=== PATIENT | male | born 1960 | race Two or more races ===

== ENCOUNTER 2024-02-27 15:12 | Emergency (ER) | payer MEDICAID, OTHER ==
[~2024-02-27] VITALS: Ht 162.6 cm; Wt 76.9 kg
--- NOTE | 2024-02-27 16:07 | ED.PDOC ---
Musculoskeletal HPI Comments 63 year old male presents to the ED with chief complaint of left elbow and wrist pain. Patient's [id number] reports that the patient had been noted to have a swollen, red, and painful left wrist and elbow on Monday. Sister relays that the patient heavily drinks and he is unable to recall when or how he injured it, but she states patient must have fallen around Monday. Patient denies any numbness, weakness, head injury, or dizziness. Chief Complaint: Fall Injury Time Seen by MD: 16:04 Primary Care Provider: LUIS ARMANDO Naqvi Notes: Nurses Notes, Medications, Allergies Allergies: Coded Allergies: NO KNOWN ALLERGIES (Unverified , 02/27/24) Home Meds Active Scripts Hydrocodone-Acetaminophen (Hydrocodone Bitartrate/AC 5-325 mg) 1 Tab Tab, 1 TAB PO Q8HP PRN for 7 Days, #21 TAB Prov:TONYA TAVERA MD 02/27/24 Information Source: Patient, Relative ([id number]) Mode of Arrival: Ambulatory Location: Left Extremity Location: Elbow, Wrist Timing: Days Prehospital treatment: None Severity: Moderate Able to Move Extremity: Yes Bear Weight: Fully Pain: Moderate Mechanism: Spontaneous Circumstances: Fall Onset of Symptoms: After Trauma Symptoms: Swelling, Pain, Erythema DVT Risk Factors: NONE Last Tetanus: Unknown Associated signs and symptoms: Wrist pain, Elbow pain Past Medical History PAST MEDICAL HISTORY: DM, High Lipids, HTN Surgical History (Other): Rt shoulder surgery Family History Family History: Reviewed,noncontributory to illness, Family hx of heart scooter Social History Smoker: Non-Smoker Alcohol: Heavy Drugs: Denies Drug Use Lives In: Home Constitutional: denies: chills, diaphoresis, fatigue, fever, malaise, sweats, weakness, others EENTM: denies: blurred vision, double vision, ear bleeding, ear discharge, ear drainage, ear pain, ear ringing, eye pain, eye redness, hearing loss, mouth pain, mouth swelling, nasal discharge, nose bleeding, nose congestion, nose pain, photophobia, tearing, throat pain, throat swelling, voice changes, others Respiratory: denies: cough, hemoptysis, orthopnea, SOB at rest, shortness of breath, SOB with excertion, stridor, wheezing, others Cardiovascular: denies: chest pain, dizzy spells, diaphoresis, Dyspnea on exertion, edema, irregular heart beat, left arm pain, lightheadedness, palpitations, PND, syncope, others Gastrointestinal: denies: abdomen distended, abdominal pain, blood streaked bowels, constipated, diarrhea, dysphagia, difficulty swallowing, hematemesis, melena, nausea, poor appetite, poor fluid intake, rectal bleeding, rectal pain, vomiting, others Genitourinary: denies: burning, dysuria, flank pain, frequency, hematuria, incontinence, penile discharge, penile sore, pain, testicle pain, testicle swelling, urgency, others Neurological: denies: dizziness, fainting, headache, left sided numbness, left sided weakness, numbness, paresthesia, pre-existing deficit, right sided numbness, right sided weakness, seizure, speech problems, tingling, tremors, weakness, others Musculoskeletal: reports: others (Left wrist and elbow pain and swelling); denies: back pain, gout, joint pain, joint swelling, muscle pain, muscle stiffness, neck pain Integumetry: denies: bruises, change in color, change in hair/nails, dryness, laceration, lesions, lumps, rash, wounds, others Allergic/Immunocompromised: denies: Difficulty Healing, Frequent Infections, Hives, Itching, others Hematologic/Lymphatic: denies: anemia, blood clots, easy bleeding, easy bruising, swollen glands, others Endocrine: denies: excessive hunger, excessive sweating, excessive thirst, excessive urination, flushing, intolerance to cold, intolerance to heat, unexplained weight gain, unexplained weight loss, others Psychiatric: denies: anxiety, bipolar disorder, depression, hopeless, panic disorder, schizophrenia, sleepless, suicidal, others All Other Systems: Reviewed and Negative Physical Exam General Appearance: Moderate Distress HEENT: Normal ENT Inspection, Pharynx Normal, TMs Normal Neck: Full Range of Motion, Non-Tender, Normal, Normal Inspection Respiratory: Chest Non-Tender, Lungs Clear, No Accessory Muscle Use, No Respiratory Distress, Normal Breath Sounds Cardiovascular: No Edema, No JVD, No Murmur, No Gallop, Normal Peripheral Pulses, Regular Rate/Rhythm Breast Exam: Deferred Gastrointestinal: No Organomegaly, Non Tender, No Pulsatile Mass, Normal Bowel Sounds, Soft Genitalia: Deferred Pelvic: Deferred Rectal: Deferred Extremities: No calf tenderness, Normal capillary refill, No pedal edema Musculoskeletal : Location: Left Extremity Location: Elbow Apperance: Swelling, Limited ROM, Tenderness: Moderate Neurologic: Alert, pearl glue drier II-XII nml as Tested, No Motor Deficits, Normal Affect, Normal Mood, No Sensory Deficits Cerebellar Function: Normal Reflexes: Normal Skin: Dry, Normal Color, Warm Lymphatic: No Adenopathy Was a procedure done? Was a procedure done?: No Differential Diagnosis EXT Differential Diagnosis: Fracture X-Ray, Labs, Meds, VS Vital Signs Date Time Temp Pulse Resp B/P (MAP) Pulse Ox O2 Delivery O2 Flow Rate FiO2 02/27/24 15:23 98.1 120 20 116/80 (92) 95 Lab Test 02/27/24 16:05 Range/Units White Blood Count 3.1 L 4.4-10.8 10^3/uL Red Blood Count 4.61 4.5-5.90 10^6/uL Hemoglobin 13.4 L 13.5-17.5 g/dL Hematocrit 41.6 41.0-53.0 % Mean Corpuscular Volume 90.3 80.0-100.0 fL Mean Corpuscular Hemoglobin 29.2 28.0-32.0 pg Mean Corpuscular Hemoglobin Concent 32.3 32.0-36.0 g/dL Red Cell Distribution Width 14.1 11.8-14.3 % Platelet Count 207 140-450 10^3/uL Mean Platelet Volume 8.8 6.9-10.8 fL Neutrophils (%) (Auto) 37.0-80.0 % Lymphocytes (%) (Auto) 10.0-50.0 % Monocytes (%) (Auto) 0.0-12.0 % Basophils (%) (Auto) 0.0-2.0 % Neutrophils # (Auto) 1.6-8.6 10 ^3/uL Lymphocytes # (Auto) 0.4-5.4 10 ^3/uL Monocytes # (Auto) 0-1.3 10 ^3/uL Differential Total Cells Counted 100.0 100 Neutrophils % (Manual) 59 37.0-80.0 Band Neutrophils % (Manual) 25 Lymphocytes % (Manual) 9 L 10.0-50.0 Monocytes % (Manual) 5 0-12 Eosinophils % (Manual) 0 0-7 Basophils % (Manual) 0 0.0-2.0 Metamyelocytes % (manual) 2 Myelocytes % (Manual) 0 Promyelocytes % (Manual) 0 Blast Cells % (Manual) 0 Reactive Lymphocytes 0 Platelet Estimate Adequate Anisocytosis (manual) Slight Sodium Level 128 L 136-145 mmol/L Potassium Level 4.9 3.5-5.1 mmol/L Chloride Level 99 98-107 mmol/L Carbon Dioxide Level 12 L 20-31 mmol/L Anion Gap 17 H 5-15 Blood Urea Nitrogen 22 9-23 mg/dL Creatinine 1.43 H 0.700-1.30 mg/dL Glomerular Filtration Rate Calc 55 >90 mL/min BUN/Creatinine Ratio 15.4 10.0-20.0 Serum Glucose 689 *H 74-106 mg/dL Calcium Level 10.3 8.7-10.4 mg/dL The patient's CBC is within normal limits The chemistry panel shows hyponatremia with a CO2 level 12 The patient was hyperglycemic at 689 We did start an IV Hep-Lock and the patient was given normal saline as a bolus The patient was also given insulin The patient will follow up with Dr. Hernandez tomorrow We did consult with Orthopedic surgery and the patient be splinted and discharged home. They will schedule the patient for surgery as an outpatient Images Reviewed?: Images reviewed and evaluated by me Time of 1ST Reevaluation: 19:12 Reevaluation 1ST: Unchanged Patient Education/Counseling: Diagnosis, Treatment, Prognosis, Need For Follow Up Family Education/Counseling: Diagnosis, Treatment, Prognosis, Need For Follow Up Departure 1 Departure Time of Disposition: 19:12 Impression: Primary Impression: Left elbow fracture Qualified Codes: S42.402A - Unspecified fracture of lower end of left humerus, initial encounter for closed fracture Additional Impression: Hyperglycemia Disposition: 01 HOME / SELF CARE / HOMELESS Condition: Fair e-Prescriptions Hydrocodone-Acetaminophen (Hydrocodone Bitartrate/AC 5-325 mg) 1 Tab Tab 1 TAB PO Q8HP PRN for 7 Days, #21 TAB Prov: TONYA TAVERA MD 02/27/24 Discharged With: Self, Relative Critical Care Note Critical Care Time?: No Stability Stability form required: No Heart Score Heart Score: Heart Score Response (Comments) Value History N/A 0 EKG N/A 0 Age N/A 0 Risk Factors N/A 0 Troponin N/A 0 Total 0 I personally scribed for TONYA TAVERA MD ([email or web address]) on 02/27/24 at 16:07. Electronically submitted by Skip Junior ([email or web address]). TONYA TAVERA MD Feb 27, 2024 16:07
--- NOTE | 2024-02-27 16:34 | DVH ---
EXAM: XY L ELBOW 3 VIEW XRAY CLINICAL HISTORY: fall COMPARISON: None TECHNIQUE: XY L ELBOW 3 VIEW XRAY Findings/Impression: 3 views of the left elbow. Moderately displaced fracture of the bilateral humeral condyles with moderate soft tissue edema and j oint effusion. There is no evidence of dislocation, blastic, or lytic lesions. No radiopaque foreign bodies.
--- NOTE | 2024-02-27 16:35 | DVH ---
CLINICAL INDICATION: fall TECHNIQUE: 3 radiographic views of the left wrist were obtained. Comparison: None FINDINGS/IMPRESSION: There is no evidence of acute fracture or dislocation. The visualized joint space is well maintained. The alignment is anatomical. There is no radiopaque foreign body. Vascular calcification is noted.
[2024-02-27 16:43] LABS: Hematocrit 41.6 % (41.0-53.0); Hemoglobin 13.4 g/dL (13.5-17.5); Mean Corpuscular Hemoglobin 29.2 pg (28.0-32.0); Mean Corpuscular Hgb Conc. 32.3 g/dL (32.0-36.0); Mean Corpuscular Volume 90.3 fL (80.0-100.0); Platelet Count (auto) 207 10^3/uL (140-450); Red Blood Cells 4.61 10^6/uL (4.5-5.90); Red Cell Distribution Width 14.1 % (11.8-14.3); White Blood Cell 3.1 10^3/uL (4.4-10.8)
[2024-02-27 16:44] LABS: Basophils % (manual) 0 (0.0-2.0); Blast Cells 0; Eosinophils % (manual) 0 (0-7); Myelocytes % 0; Promyelocytes % 0; Reactive Lymphocytes 0
[2024-02-27 16:48] LABS: Anion Gap 17 (5-15); Chloride 99 mmol/L (98-107); Potassium 4.9 mmol/L (3.5-5.1)
[2024-02-27 16:49] LABS: Calcium 10.3 mg/dL (8.7-10.4)
[2024-02-27 16:54] LABS: BUN/Creatinine Ratio 15.4 (10.0-20.0); Blood Urea Nitrogen 22 mg/dL (9-23)
[2024-02-27 17:13] LABS: Carbon Dioxide 12 mmol/L (20-31); Sodium 128 mmol/L (136-145)
[2024-02-27] MEDS ORDERED: HYDR-4902 PO (17:16)
[2024-02-27 17:17] LABS: Glucose 689 mg/dL (74-106)
[2024-02-27 18:02] LABS: Band Neutrophils % (manual) 25; Lymphocytes % (manual) 9 (10.0-50.0); Metamyelocytes % 2; Monocytes % (manual) 5 (0-12); Platelet Estimate Adequate
[2024-02-27 18:03] LABS: Anisocytosis Slight
[2024-02-27 19:24] VITALS: PULSE 110; RESP 18; O2SAT 98
[2024-02-27] MEDS: MORPHINE SULFATE 4 MG/ML SYR/VIAL IV ONE (20:09)
[2024-02-27] MEDS: ONDANSETRON HCL 4 MG/2 ML VIAL IV ONE (20:09)
[2024-02-27] MEDS: InsuLIN REG 1unit/0.01ml Soln (100units/ml) IV ONE (20:16)
[2024-02-27] MEDS: SODIUM CHLORIDE 0.9% 500 ML IV ONE (20:18)
[2024-02-27 21:28] VITALS: PULSE 113; RESP 34; O2SAT 95
[2024-02-27] MEDS ORDERED: ONDANSETRON HCL 4 MG/2 ML VIAL IV PRN (21:45)
[2024-02-27] MEDS ORDERED: HYDROcodone-ACET 5/325MG TAB PO PRN (21:45)
[2024-02-27] MEDS ORDERED: TEMAZEPAM 15 MG CAP PO PRN (21:45)
[2024-02-27] MEDS ORDERED: DEXTROSE (50%) 50ML SYRG IV PRN (21:45)
[2024-02-27] MEDS ORDERED: MORPHINE SULFATE INJ 2 MG/ml SYRG IV PRN ×2 (21:45)
[2024-02-27] MEDS ORDERED: NITROGLYCERIN 0.4 MG SL TAB SL PRN (21:45)
[2024-02-27] MEDS ORDERED: ACETAMINOPHEN 325 MG TAB PO PRN (21:45)
[2024-02-27 22:50] LABS: Chloride 100 mmol/L (98-107); Potassium 4.3 mmol/L (3.5-5.1)
[2024-02-27 22:51] LABS: Anion Gap 19 (5-15)
[2024-02-27 22:52] LABS: Calcium 9.1 mg/dL (8.7-10.4)
[2024-02-27] MEDS: INSULIN DRIP 100 UNIT/100ML 100 ML IV SCH (22:55)
[2024-02-27 22:56] LABS: BUN/Creatinine Ratio 17.8 (10.0-20.0)
[2024-02-27] MEDS: INSULIN LANTUS (GLARGINE) 1 /0.01ml (100units/ml) SC ONE (22:56)
[2024-02-27] MEDS: ACCU-CHEK COMFORT CURVE STRIP VI SCH (22:56)
[2024-02-27 22:57] LABS: Blood Urea Nitrogen 32 mg/dL (9-23); Carbon Dioxide 11 mmol/L (20-31); Sodium 130 mmol/L (136-145)
[2024-02-27 23:05] LABS: Glucose 642 mg/dL (74-106)
[2024-02-27] MEDS: SODIUM CHLORIDE 0.9% 3,500 ML IV ONE (23:36)
[2024-02-27] MEDS: SODIUM BICARB 8.4% 50Meq/50ml SYR Vial IV ONE (23:45)
[2024-02-28] MEDS: ACCU-CHEK COMFORT CURVE STRIP VI SCH
[2024-02-28] MEDS ORDERED: DEXTROSE (50%) 50ML SYRG IV PRN
[2024-02-28 00:26] LABS: Base Excess -9.2 mmol/L (-2.0-3.0)
[2024-02-28] MEDS: SODIUM CHLORIDE 0.9% 1,000 ML IV SCH ×3 (01:16→06:24)
[2024-02-28] MEDS ORDERED: SODIUM CHLORIDE 0.9% 1,000 ML IV SCH ×2 (01:45→03:45)
[2024-02-28] MEDS: IOHEXOL 350 MG/ML 100ML IJ ONE ×2 (02:20→04:25)
[2024-02-28] MEDS ORDERED: METOPROLOL TARTRATE 1MG/1ML-5ML VIAL IV SCH (02:45)
[2024-02-28] MEDS: AMIODARONE BOLUS KIT 100 ML IV ONE (02:45)
[2024-02-28 03:10] LABS: Anion Gap 20 (5-15); Chloride 105 mmol/L (98-107); Potassium 3.6 mmol/L (3.5-5.1)
[2024-02-28 03:14] LABS: Base Excess -14.5 mmol/L (-2.0-3.0)
[2024-02-28 03:16] LABS: BUN/Creatinine Ratio 19.4 (10.0-20.0)
[2024-02-28 03:19] LABS: Blood Urea Nitrogen 27 mg/dL (9-23); Calcium 8.4 mg/dL (8.7-10.4); Carbon Dioxide 10 mmol/L (20-31); Glucose 440 mg/dL (74-106); Sodium 135 mmol/L (136-145)
[2024-02-28] MEDS: METOPROLOL TARTRATE 1MG/1ML-5ML VIAL IV ONE (03:29)
[2024-02-28] MEDS: HYDROcodone-ACET 10/325MG TAB PO ONE (03:43)
[2024-02-28] MEDS: AMIODARONE 450mg/250ml AE 250 ML IV SCH (03:44)
[2024-02-28] MEDS: INSULIN DRIP 100 UNIT/100ML 100 ML IV SCH ×2 (03:51)
[2024-02-28] MEDS: SODIUM BICARB 8.4% 50Meq/50ml SYR Vial IV ONE (03:52)
--- NOTE | 2024-02-28 03:55 | DVH ---
Examination: UECIR CLINICAL INDICATION: nrcrosis, rif and rmf COMPARISON: None. CONTRAST USED: Intravenous. TECHNIQUE: A contrast CT study of the left upper extremity is performed. Multiplanar reconstruction s were obtained. CT scan WAS done according to ALARA (As Low As Reasonably Achievable). FINDINGS: Comminuted fracture of the metaphysis of left humerus is seen with multiple adjacent bone fragments. Rest of the humerus, visualized parts of radius and ulna appear normal. The elbow joint appears normal. No evidence of dislocation. No evidence of erosion/destruction. There is no joint effusion. There is no evidence of subluxation or dislocation. The visualized soft tissues appear unremarkable. No obvious collection is seen. IMPRESSION: Comminuted fracture of the metaphysis of left humerus is seen with multiple adjacent bon e fragments. Electronically Signed 02/28/2024 03:55 Marcelle Quiles
--- NOTE | 2024-02-28 03:55 | DVH ---
Examination: HWOCT CLINICAL INDICATION: trauma DIREAS;Reason for Exam: Portable;Portable;Modes of Transportation DITRAN S;How is patient transported?. COMPARISON: None. CONTRAST USED: None. TECHNIQUE: The examination was performed obtaining 5 mm slices without contrast. Multiplanar reconst ructions were obtained. CT scan done according to ALARA (As Low As Reasonably Achievable). FINDINGS: SUPRATENTORIAL BRAIN: Cerebral Hemispheres: There is no midline shift or mass effect, intra or extra-axial fluid collectio ns or hemorrhage. Periventricular White Matter/Basal Ganglia: No abnormal areas of altered attenuation within the [place] ventricular white matter or basal ganglia. POSTERIOR FOSSA: The brainstem is normal and the visualized cerebellar hemispheres are unremarkable. VENTRICULAR SYSTEM: The ventricular system is normal in size. There is no evidence of hydrocephalus or transependymal flow of cerebrospinal fluid. SKULL BASE AND PARASELLAR REGION: The skull base is normal with no parasellar masses or abnormalitie s identified. CALVARIUM AND SCALP REGION: No abnormality is seen. PARANASAL SINUSES: Severe right maxillary, mild bilateral ethmoid and left maxillary sinusitis. IMPRESSION: 1. No intracranial abnormality detected. 2. No acute infarct or space occupying lesion is seen. 3. No intracranial hemorrhage or calvarial fracture. 4. Suggest MRI brain correlation if clinically deemed necessary. Electronically Signed 02/28/2024 03:55 Marcelle Quiles
[2024-02-28] MEDS: SODIUM BICARB 50mEq/50ml Vial 100 ML in SOD CHL 0.45% 1,000 ML IV ONE (03:59)
--- NOTE | 2024-02-28 05:23 | DVH ---
INDICATION: INFECTION// NECROSIS COMPARISON: CT LT UPPER EXTREMITY W CONTRAS on DOS: 02/28/24 TECHNIQUE: CT of the right was performed with contrast. Volume transverse images were obtained and reconstructed in multiple planes using bone and soft tissue algorithms. CONTRAST: None Radiation Dose Information: CTDI volume is 7.75 mGy. Dose-length product is 445.11 mGy*cm FINDINGS: The alignment is normal. There is elbow joint space narrowing and osteophyte formation. There is no fracture, dislocation, or periosteal reaction. No cortical destruction. Soft tissue edema. Diffuse vascular calcifications. No fluid collection. IMPRESSION: 1. No acute fracture or cortical destruction. 2. Soft tissue swelling in the forearm which may reflect cellulitis. No fluid collection. 3. Elbow osteoarthritis. All CT scans at this medical facility are performed using dose modulation techniques as appropriate t o a performed exam including the following: Automated exposure control was utilized; adjustment of th e MA and/or KV according to patient size; and use of iterative reconstruction technique.
[2024-02-28] MEDS: ALBUMIN 5% 250 ML IV ONE (05:45)
[2024-02-28 07:35] VITALS: BP 88/58; PULSE 133; RESP 49; TEMP 96.8; O2SAT 88
[2024-02-28] MEDS ORDERED: AMIODARONE 450mg/250ml AE 250 ML IV SCH (09:00)
[2024-02-28] MEDS ORDERED: INSULIN LANTUS (GLARGINE) 1 /0.01ml (100units/ml) SC SCH (10:00)
--- NOTE | 2024-02-28 10:24 | ECG ---
[facility] Test Date: 2024-02-28 Test Time: 00:39:05 Pat Name: LUIS BLACKWOOD Department: ED Room: [address] [place] [address] Gender: M Motion Picture Camera Operator: JULIÁN : 1960 Requested By: THA GARAY Order Number: [id number] Reading MD: Johnny Parker Measurements Intervals [place] Rate: 153 P: 0 NE: 0 QRS: 69 QRSD: 85 T: 98 QT: 274 QTc: 438 Interpretive Statements Atrial fibrillation with rapid V-rate Low voltage, precordial leads Abnormal R-wave progression, early transition Repolarization abnormality, prob rate related Electronically Signed On 03-01-2024 10:24:59 PST by Johnny Parker Please click the below link to view image of tracing.
== END 2024-02-28 07:45 | disposition short-term general hospital (02) ==
LOC: ER 15:12 → TELE 21:38 → UNDOADMIN 21:38 → UNDODISIN 02-28 07:45
DX: S42.402A Unspecified fracture of lower end of left humerus, initial encounter for closed fracture (principal); E11.10 Type 2 diabetes mellitus with ketoacidosis without coma; E11.65 Type 2 diabetes mellitus with hyperglycemia; I10 Essential (primary) hypertension; W18.09XA Striking against other object with subsequent fall, initial encounter; Y93.89 Activity, other specified; Y92.89 Other specified places as the place of occurrence of the external cause; Y99.8 Other external cause status
CPT/HCPCS: 29105; 36415; 36600; 70450; 73080; 73110; 73201; 80048; 80320; 82010; 82805; 82962; 83735; 83930; 84100; 85007; 85027; 93005; 96361; 96365; 96366; 96368; 96372; 96375; 99291; J0282; J1815; J2270; J2405; J7030; P9045; Q9967; G0378